=== PATIENT | female | born 1990 | race Caucasian/White ===

== ENCOUNTER 2019-07-07 21:04 | Inpatient (IN) | payer OTHER ==
[2019-07-07] VITALS (11 sets, daily range): BP systolic 119–170; BP diastolic 62–103; PULSE 65–105; TEMP 99
[~2019-07-07] VITALS: Ht 165.1 cm; Wt 81.4 kg
--- NOTE | 2019-07-07 20:30 | NUR ---
PT ARRIVED TO UNIT WITH COMPLAINTS OF POSSIBLE SROM. PT TO UNIT AMBULATORY WITH SPOUSE. ORIENTED TO ROOM, CHANGED INTO GOWN, AMNIOSWAB + X2, SVE PERFORMED, EFM X2, VS OBTAINED.
[2019-07-07] MEDS ORDERED: CONCEPT DHA1 CAP PO (22:20)
[2019-07-07 22:25] LABS: BASO % 0.2 % (0.0-2.0); EOS # 0.2 (0.0-0.7); EOS % 1.7 % (0-4.0); GRAN # 8.3 (1.4-6.5); GRAN % 69.8 % (42.2-75.2); HEMATOCRIT 38.6 % (37.0-47.0); HEMOGLOBIN 13.5 g/dl (12.5-16.0); LYMPH # 2.3 (1.2-3.4); LYMPH % 19.7 % (20.0-51.0); MEAN CELL VOLUME 97 fl (80.0-100.0); MEAN CORPUSCULAR HEMOGLOBIN 34 pg (27.0-31.0); MEAN CORPUSCULAR HGB CONC 35 g/dl (33.0-37.0); MEAN PLATELET VOLUME 10.1 fl (7.4-10.4); MONO % 8.1 % (1.7-9.3); PLATELET COUNT 223 K/mm3 (130-400); RED BLOOD COUNT 3.97 M/mm3 (4.10-5.30); REDCELL DISTRIBUTION WIDTH-CV 12.2 % (11.5-14.5)
[2019-07-08] VITALS (70 sets, daily range): BP systolic 106–170; BP diastolic 51–100; PULSE 61–153; TEMP 97.7–98.8
--- NOTE | 2019-07-08 06:30 | NUR ---
Sits on the side of the bed. Spouse at bedside. Breathes through contractions. Denies any needs at this time.
--- NOTE | 2019-07-08 07:45 | NUR ---
Continues to sit up in bed. Breathes through contractions. Spouse at bedside with patient.
--- NOTE | 2019-07-08 09:00 | NUR ---
Rests on birthing ball. Breathes through contractions. Denies wanting any pain medication at this time. Vag exam done, dilated 7-8. Sits back up on the birthing ball.
--- NOTE | 2019-07-08 09:15 | NUR ---
Sits up on edge of bed, continues to breathe through contractions. Pitocin decreased to eight rufino units for tachysystole.
--- NOTE | 2019-07-08 09:45 | NUR ---
Sits up in bed, alert. Denies wanting any pain medication. Breathes with contractions.
--- NOTE | 2019-07-08 10:00 | NUR ---
Sits up on side of bed. Encouraged to slow breathing down. Pitocin decreased to six rufino units because of increased contractions.
--- NOTE | 2019-07-08 11:45 | NUR ---
Rests in bed, alert. Lies on right side in bed. Encouraged to get rest.
--- NOTE | 2019-07-08 12:00 | NUR ---
Ambulates to the bathroom and back. Voids moderate amount of clear yellow urine. Back to bed, encouraged to turn side to side every fifteen minutes.
--- NOTE | 2019-07-08 12:45 | NUR ---
Encouraged to stand at bedside. Let her know to rock back and forth.
--- NOTE | 2019-07-08 13:30 | NUR ---
1342 Starts pushing with contractions. Tolerates well.
--- NOTE | 2019-07-08 14:00 | NUR ---
Continues to push with contractions.
--- NOTE | 2019-07-08 14:30 | NUR ---
1443 Dr. Maldonado here, visits with patient. Pushes a few pushes with patient.
--- NOTE | 2019-07-08 15:15 | NUR ---
Continues to push with contractions. Dr. Maldonado notified of pulse 130s.
--- NOTE | 2019-07-08 15:45 | NUR ---
Continues to push with contractions. Doing well with support of .
--- NOTE | 2019-07-08 16:00 | NUR ---
Dr. Maldonado here, pushes with patient.
--- NOTE | 2019-07-08 16:30 | NUR ---
Dr. Maldonado continues to push with patient.
--- NOTE | 2019-07-08 16:45 | NUR ---
1652 Continues to push, episiotomy done by Dr. Maldonado.1652 Spontaneous delivery of baby girl by Dr. Maldonado. 170 Spontaneous delivery of placenta by Dr. Maldonado. Pitocin 333ccs an hour started as ordered and per policy.
--- NOTE | 2019-07-08 17:30 | NUR ---
Holds baby lovingly. Denies any needs at this time.
--- NOTE | 2019-07-08 18:00 | NUR ---
Rests in bed, alert. Denies any needs at this time. Fudus palpated to firm. Small amount of bleeding noted. Denies wanting any pain medication at this time.
[2019-07-09 03:10] VITALS: BP 91/57; PULSE 111; TEMP 98.4
[2019-07-09 05:10] VITALS: BP 104/45; PULSE 93; TEMP 98.1
[2019-07-09 08:30] VITALS: BP 135/76; PULSE 120; TEMP 97.7
[2019-07-09 13:00] VITALS: BP 117/73; PULSE 77; TEMP 97.6
[2019-07-09] MEDS ORDERED: IBU800 M1 PO (16:29)
[2019-07-09 17:30] VITALS: BP 107/57; PULSE 71; TEMP 98.7
[2019-07-09 19:35] VITALS: BP 120/63; PULSE 90; TEMP 98.2
[2019-07-10 09:11] VITALS: BP 98/55; PULSE 83; TEMP 98
[2019-07-10 16:18] VITALS: BP 113/65; PULSE 64; TEMP 98.2
== END 2019-07-10 17:32 | disposition home or self-care (01) | DRG 807 ==
LOC: LDRO 21:04 → OB 21:07 → LDR 21:07 → OB 07-08 19:30
PROVIDERS: Obstetrics & Gynecology; ADMIT Obstetrics & Gynecology
PROC: 10E0XZZ Delivery of Products of Conception, External Approach (ICD-10-PCS; principal; 2019-07-07)
PROC: 0KQM0ZZ Repair Perineum Muscle, Open Approach (ICD-10-PCS; 2019-07-07)
PROC: 0W8NXZZ Division of Female Perineum, External Approach (ICD-10-PCS; 2019-07-07)
DX: O99.824 Streptococcus B carrier state complicating childbirth (principal); Z37.0 Single live birth; O70.1 Second degree perineal laceration during delivery; Z3A.39 39 weeks gestation of pregnancy
CPT/HCPCS: J0690; J2590; J7120

== ENCOUNTER → 2021-01-26 | Outpatient (CLI) | payer OTHER ==
[~2021-01-26] MED LIST: CONCEPT DHA1 CAP PO; IBU800 M1 PO
== END ==
LOC: COL.RAD 10:42
DX: E04.1 Nontoxic single thyroid nodule (principal)

== ENCOUNTER 2021-03-14 17:43 | Outpatient (CLI) | payer BC ==
[~2021-03-14] VITALS: Ht 165.1 cm; Wt 78.2 kg
--- NOTE | 2021-03-14 17:50 | NUR ---
1750- 39.3, G2L1 arrives on unit with complaints of leaking of vaginal fluids at 1330. Reports normal movement. Denies any VB or contractions. Ambulatory to LDR5 and changes into clean gown. EFM explained and applied x2. 1800- Amnitrace negative. SVE /-3. No fluid with exam. Vaginal discharge noted. Assessment completed. VS obtained. 1814- Report to lieutenant shift supervisor RN.
[2021-03-14 18:22] VITALS: BP 139/84; PULSE 88; TEMP 99.1
== END 2021-03-14 18:30 | disposition home or self-care (01) ==
LOC: LDRO 17:43
DX: O42.92 Full-term premature rupture of membranes, unspecified as to length of time between rupture and onset of labor (principal); Z3A.39 39 weeks gestation of pregnancy

== ENCOUNTER 2021-03-23 07:17 | Inpatient (IN) | payer BC, OTHER ==
[~2021-03-23] VITALS: Ht 165.1 cm; Wt 80.0 kg
[2021-03-24] VITALS (26 sets, daily range): BP systolic 93–154; BP diastolic 55–91; PULSE 41–122; TEMP 97.5–99.2
--- NOTE | 2021-03-24 06:30 | NUR ---
Patient ambulates to LR4 with spouse, changed into gown, FHR/TOCO monitors placed and explained. Patient denies any regular contractions/leaking of fluid/vaginal bleeding/decreased movement. Plan of care discussed. 0645: IV started in right hand, blood obtained and to lab, flushed. 0721: Pitocin induction discussed and patient agrees with plan. Pitocin started at 2 mu. 0800: Dr. Maldonado at bedside and assessing patient and FHR strip. SVE-3/50/-2 and AROM at this time with clear fluid noted. Patient tolerates well.
[2021-03-24 07:12] LABS: BASO % 0.3 % (0.0-2.0); EOS # 0.2 K/mm3 (0.0-0.7); EOS % 2.1 % (0.0-4.0); GRAN # 7.9 K/mm3 (1.4-6.5); HEMATOCRIT 37.3 % (37.0-47.0); HEMOGLOBIN 12.8 g/dl (12.5-16.0); LYMPH % 18.5 % (20.0-51.0); MEAN CELL VOLUME 97 fl (80.0-100.0); MEAN CORPUSCULAR HEMOGLOBIN 33 pg (27-31); MEAN CORPUSCULAR HGB CONC 34 g/dl (33.0-37.0); MEAN PLATELET VOLUME 9.5 fl (7.4-10.4); MONO # 0.6 K/mm3 (0.1-0.6); MONO % 5.3 % (1.7-9.3); PLATELET COUNT 238 K/mm3 (130-400); RED BLOOD COUNT 3.85 M/mm3 (4.10-5.30); REDCELL DISTRIBUTION WIDTH-CV 12.7 % (11.5-14.5)
--- NOTE | 2021-03-24 09:30 | NUR ---
Patient getting more uncomfortable with contractions. Patient up on birthing ball. 1032: Dr. Maldonado at bedside to assess patient and FHR strip. SVE-/-1 1056: Patient requests epidural and T.Nael CLAIMS ASSISTANT notified. 1130: Patient squatting at bedside. Difficulty tracing FHR due to maternal position. 1135: Patient sitting up for epidural and T.Cooper CLAIMS ASSISTANT at bedside. Difficulty tracing FHR. Patient states "I have a lot of pressure and I am pushing". 1140: SVE-/+1. 1141: Dr. Maldonado called and no answer. Patient prepped for vaginal delivery. Henok HURTADO notified Dr. Maldonado and shes on her way. 1150: Dr. Maldonado at bedside and patient prepped for vaginal delivery. 1153: Patient starts pushing and spontaneous vaginal delivery of viable female-head followed by body. to patients abdomen and E.Brenna RN assumes care of infant. Cord clamped x2 by physician and cut by FOB. Cord blood obtained. 1158: Spontaneous delivery of placenta and pitocin bolus started per protocol. Fundal massage done/firm/bleeding WNL. 1204: Dr. Maldonado injects lidocaine into perineum and begins to repair laceration. Fundal massage done/clots expressed/bleeding WNL. Patient repositioned/ice pack to perineum/plan of care discussed.
--- NOTE | 2021-03-24 14:00 | NUR ---
Patient up to bathroom with standy assist, voids, pericare done, new underwear/ice pack/gown on. Patient ambulates to new room and oriented to . Plan of care discussed.
[2021-03-25 00:05] VITALS: BP 134/82; PULSE 96; TEMP 98
[2021-03-25 08:15] VITALS: BP 107/67; PULSE 84; TEMP 98
--- NOTE | 2021-03-25 08:15 | NUR ---
Rests in bed, alert. Holds baby lovingly. Refuses pain medication and stool softner. Denies any pain at this time.
[2021-03-25] MEDS ORDERED: IBU800 M1 PO (08:32)
--- NOTE | 2021-03-25 09:32 | NUR ---
Initial visit; Parents thanked Recreation Clerk for offering congratulations and God's blessings for the of their daughter. Recreation Clerk thanked family for choosing [facility].
--- NOTE | 2021-03-25 15:00 | NUR ---
Discharge instructions given, verbalizes understanding.
== END 2021-03-25 15:50 | disposition home or self-care (01) | DRG 807 ==
LOC: OB 03-24 06:15 → LDR 03-24 06:15 → OB 03-24 14:15
PROVIDERS: ADMIT Student in an Organized Health Care Education/Training Program
PROC: 10E0XZZ Delivery of Products of Conception, External Approach (ICD-10-PCS; principal; 2021-03-24)
PROC: 0KQM0ZZ Repair Perineum Muscle, Open Approach (ICD-10-PCS; 2021-03-24)
PROC: 3E033VJ Introduction of Other Hormone into Peripheral Vein, Percutaneous Approach (ICD-10-PCS; 2021-03-24)
PROC: 10907ZC Drainage of Amniotic Fluid, Therapeutic from Products of Conception, Via Natural or Artificial Opening (ICD-10-PCS; 2021-03-24)
DX: O99.284 Endocrine, nutritional and metabolic diseases complicating childbirth (principal); Z37.0 Single live birth; E03.8 Other specified hypothyroidism; O99.824 Streptococcus B carrier state complicating childbirth; O43.123 Velamentous insertion of umbilical cord, third trimester; O76 Abnormality in fetal heart rate and rhythm complicating labor and delivery; O69.81X0 Labor and delivery complicated by cord around neck, without compression, not applicable or unspecified; O70.1 Second degree perineal laceration during delivery; Z23 Encounter for immunization; Z3A.40 40 weeks gestation of pregnancy
CPT/HCPCS: J2540; J2590; J7120